=== PATIENT | male | born 2000 | race Caucasian/White ===

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

== ENCOUNTER 2020-12-07 19:15 | Emergency (ER) | payer MEDICAID ==
[~2020-12-07] VITALS: Ht 165.1 cm; Wt 70.0 kg
[2020-12-07 19:30] VITALS: BP 98/52
[2020-12-07] MEDS ORDERED: DIPH25CA83 PO (19:56)
[2020-12-07] MEDS ORDERED: P50 MT (19:56)
[2020-12-07] MEDS ORDERED: PREDNISONE 20MG TABLET PO ONE (20:00)
[2020-12-07] MEDS ORDERED: DIPHENHYDRAMINE 50MG CAPSULE PO ONE (20:00)
== END 2020-12-07 20:30 | disposition home or self-care (01) ==
LOC: ER 19:15
DX: T78.40XA Allergy, unspecified, initial encounter (principal); X58.XXXA Exposure to other specified factors, initial encounter
CPT/HCPCS: 99283; J7512; Q0163

== ENCOUNTER 2025-01-06 21:59 | Inpatient (IN) | payer MEDICAID ==
[~2025-01-06] VITALS: Ht 167.6 cm; Wt 69.9 kg
[~2025-01-06 21:59] MED LIST: DIPH25CA83 PO; P50 MT
[2025-01-06 22:03] VITALS: O2SAT 99
[2025-01-06 22:42] LABS: CLARITY URINE CLEAR (CLEAR); COLOR URINE YELLOW (YELLOW); GLUCOSE URINE NEGATIVE (NEGATIVE); KETONES URINE TRACE (NEGATIVE); LEUKOCYTE ESTERASE URINE NEGATIVE (NEGATIVE); NITRITE URINE NEGATIVE (NEGATIVE); OCCULT BLOOD URINE 3+ (NEGATIVE); PH URINE 6.0 (4.5-8.0); PROTEIN URINE NEGATIVE (NEGATIVE); SPECIFIC GRAVITY URINE 1.020 (1.005-1.030); UROBILINOGEN URINE 0.2 E.U./dL (0.2-1.0)
[2025-01-06 23:14] LABS: BACTERIA URINE TRACE
[2025-01-06 23:15] LABS: SQUAMOUS EPITHELIAL CELL URINE FEW /lpf (RARE/1+); WBC URINE 0-2 /hpf (0-2)
[2025-01-06 23:17] LABS: BASOPHILS % 0.3 % (0.0-2.0); EOSINOPHILS % 1.3 % (0.0-5.0); HEMATOCRIT. 44.7 % (42.0-52.0); HEMOGLOBIN. 14.8 g/dL (14.0-18.0); LYMPHOCYTES % 24.3 % (20.0-50.0); MEAN PLATELET VOLUME 8.4 fl (7.4-10.4); MONOCYTES % 8.2 % (2.0-8.0); NEUTROPHILS % 65.9 % (40.0-76.0); PLATELET 229 x1000/uL (130-400); RED BLOOD CELL COUNT 5.01 mill/uL (4.7-6.1); RED CELL DISTRIBUTION WIDTH 13.4 % (11.6-14.6)
[2025-01-06 23:25] LABS: CREATININE 0.9 mg/dL (0.6-1.3); UREA NITROGEN BLOOD 14 mg/dL (9-23)
[2025-01-06] MEDS: ONDANSETRON 4MG ODT PO ONE (23:43)
[2025-01-06] MEDS: KETOROLAC 15MG/ML VIAL IM ONE (23:43)
[2025-01-07 00:03] LABS: ASPARTATE AMINOTRANSFERASE 17 IU/L (<34); BILIRUBIN DIRECT 0.3 mg/dL (<=3.0); BILIRUBIN TOTAL 0.7 mg/dL (0.1-1.0); PROTEIN TOTAL 7.9 g/dL (6.0-8.3)
[2025-01-07 01:21] LABS: BASOPHILS % 0.3 % (0.0-2.0); EOSINOPHILS % 0.8 % (0.0-5.0); HEMATOCRIT. 44.4 % (42.0-52.0); HEMOGLOBIN. 14.8 g/dL (14.0-18.0); LYMPHOCYTES % 12.7 % (20.0-50.0); MEAN PLATELET VOLUME 8.4 fl (7.4-10.4); MONOCYTES % 7.2 % (2.0-8.0); NEUTROPHILS % 79.0 % (40.0-76.0); PLATELET 225 x1000/uL (130-400); RED BLOOD CELL COUNT 5.01 mill/uL (4.7-6.1); RED CELL DISTRIBUTION WIDTH 13.2 % (11.6-14.6)
[2025-01-07 01:35] LABS: CREATININE 0.9 mg/dL (0.6-1.3); UREA NITROGEN BLOOD 14 mg/dL (9-23)
[2025-01-07] MEDS: SODIUM CHLORIDE 0.9% 1,000 ML IV ONE (01:43)
[2025-01-07] MEDS: ONDANSETRON HCL 4MG/2ML INJ IV ONE (01:44)
[2025-01-07] MEDS: MORPHINE SULFATE 4 MG/ML INJ (FOR IV/IM USE) IV ONE (01:45)
[2025-01-07] MEDS ORDERED: CEFTRIAXONE 1GM/50ML 50 ML IV ONE (02:00)
[2025-01-07] MEDS ORDERED: ACETAMINOPHEN 325MG TABLET PO PRN (05:00)
[2025-01-07] MEDS ORDERED: IPRATROPIUM/ALBUTEROL 0.5-3(2.5)MG/3ML NEB HHN PRN (05:00)
[2025-01-07] MEDS ORDERED: ONDANSETRON HCL 4MG/2ML INJ IV PRN (05:00)
[2025-01-07] MEDS ORDERED: DEXT 5%/0.9% NACL 1,000 ML IV SCH (05:00)
[2025-01-07] MEDS ORDERED: DOCUSATE SODIUM 100MG CAPSULE PO PRN (05:00)
[2025-01-07 05:24] VITALS: BP 95/50; PULSE 52; RESP 16; TEMP 36.4736
[2025-01-07 08:00] VITALS: BP 94/57; PULSE 58; RESP 18; TEMP 36.4; O2SAT 100
[2025-01-07 08:04] LABS: PHOSPHORUS 3.1 mg/dL (2.5-4.9)
[2025-01-07] MEDS: PANTOPRAZOLE SODIUM 40 MG/VIAL IV SCH (08:23)
[2025-01-07] MEDS: ENOXAPARIN 40MG/0.4ML SYR SUBCUT SCH (09:00)
[2025-01-07] MEDS: ACETAMINOPHEN 325MG TABLET PO PRN (09:01)
[2025-01-07] MEDS: PIPERACILLIN/TAZO 3.375G/50ML 50 ML IV SCH (09:01)
[2025-01-07] MEDS: MULTIVITAMINS,THER W-MINERALS TABLET PO SCH (09:01)
[2025-01-07] MEDS: CHLORDIAZEPOXIDE 25MG CAPSULE PO PRN (09:13)
[2025-01-07 10:49] LABS: *AMPHETAMINES SCREEN URINE NEGATIVE (NEGATIVE)
[2025-01-07 10:50] LABS: *BARBITURATES SCREEN URINE NEGATIVE (NEGATIVE)
[2025-01-07 10:51] LABS: *BENZODIAZEPINES SCREEN URINE NEGATIVE (NEGATIVE); *COCAINE SCREEN URINE PRESUMPTIVE POSITIVE (NEGATIVE); CANNABINOID URINE SCREEN PRESUMPTIVE POSITIVE (NEGATIVE); ECSTASY MDMA SCREEN URINE NEGATIVE (NEGATIVE); METHADONE URINE SCREEN NEGATIVE (NEGATIVE); OPIATES URINE SCREEN NEGATIVE (NEGATIVE); PHENCYCLIDINE URINE SCREEN NEGATIVE (NEGATIVE)
[2025-01-07] MEDS ORDERED: SODIUM CHLORIDE 0.9% 500 ML IV SCH (12:00)
[2025-01-07] MEDS: LORAZEPAM 1MG TABLET PO PRN (12:07)
[2025-01-07 16:00] VITALS: BP 99/57; PULSE 79; RESP 18; TEMP 36.9; O2SAT 100
[2025-01-07] MEDS: FOLIC ACID 1 MG, THIAMINE HCL 100 MG, MVI, ADULT NO.1 10 ML in DEXTROSE 5% WATER 1,000 ML IV ONE (17:30)
[2025-01-07] MEDS ORDERED: LORAZEPAM 1MG TABLET PO PRN (18:00)
[2025-01-07] MEDS: PANTOPRAZOLE 40MG DR TABLET PO SCH (21:00)
[2025-01-08] VITALS: BP 94/56; PULSE 94; RESP 19; TEMP 36.7; O2SAT 97
[2025-01-08 04:00] VITALS: BP 99/61; PULSE 59; RESP 17; TEMP 36.7; O2SAT 100
[2025-01-08 06:09] LABS: BASOPHILS % 0.8 % (0.0-2.0); EOSINOPHILS % 2.4 % (0.0-5.0); HEMATOCRIT. 40.0 % (42.0-52.0); HEMOGLOBIN. 13.6 g/dL (14.0-18.0); LYMPHOCYTES % 29.8 % (20.0-50.0); MEAN PLATELET VOLUME 8.8 fl (7.4-10.4); MONOCYTES % 12.0 % (2.0-8.0); NEUTROPHILS % 55.0 % (40.0-76.0); PLATELET 187 x1000/uL (130-400); RED BLOOD CELL COUNT 4.53 mill/uL (4.7-6.1); RED CELL DISTRIBUTION WIDTH 13.3 % (11.6-14.6)
[2025-01-08 06:25] LABS: CREATININE 1.0 mg/dL (0.6-1.3); UREA NITROGEN BLOOD 13 mg/dL (9-23)
[2025-01-08 06:26] LABS: LACTATE DEHYDROGENASE 127 IU/L (120-246)
[2025-01-08 06:27] LABS: PHOSPHORUS 3.3 mg/dL (2.5-4.9)
[2025-01-08 08:00] VITALS: BP 101/55; PULSE 70; RESP 18; TEMP 36.2; O2SAT 97
[2025-01-08] MEDS: FOLIC ACID 1MG TABLET PO SCH (08:42)
[2025-01-08] MEDS: THIAMINE HCL 100MG TABLET PO SCH (08:43)
[2025-01-08] MEDS ORDERED: PROT40 MT (10:22)
[2025-01-08 12:00] VITALS: BP 99/52; PULSE 62; RESP 18; TEMP 37.4; O2SAT 96
[2025-01-08 12:48] VITALS: BP 99/52; PULSE 63; RESP 18; TEMP 97.5
== END 2025-01-08 13:43 | disposition home or self-care (01) | DRG 720 ==
LOC: ER 21:59 → 5WST 01-07 01:48 → EDBEDREQTM 01-07 02:12 → EDBEDREQSVC 01-07 02:12 → EDBEDREQ 01-07 02:12 → ENRESERV 01-07 02:34
PROVIDERS: ADMIT Internal Medicine; ATTEND Internal Medicine
DX: A41.9 Sepsis, unspecified organism (principal); K76.0 Fatty (change of) liver, not elsewhere classified; F10.139 Alcohol abuse with withdrawal, unspecified; F12.10 Cannabis abuse, uncomplicated; N39.0 Urinary tract infection, site not specified; K29.70 Gastritis, unspecified, without bleeding; Y90.9 Presence of alcohol in blood, level not specified; F14.10 Cocaine abuse, uncomplicated; F17.210 Nicotine dependence, cigarettes, uncomplicated
CPT/HCPCS: 36415; 74176; 80048; 80076; 80305; 81003; 83605; 83615; 83735; 84100; 84145; 85025; 99285; A4606; J1650; J1885; J2270; J2405; J2470; J2543; J3411; J3490; J7030; J7070; Q0162